=== PATIENT | male | born 1990 | race Caucasian/White ===

== ENCOUNTER → 2018-12-31 | Outpatient (CLI) | payer BC ==
--- NOTE | 2018-12-31 20:37 | CONS ---
CONSULTATION REASON FOR CONSULTATION: Sleep apnea. 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 Never had to fall asleep behind the wheel. Never had been involved in a motor vehicle accident because of feeling drowsy or sleepy. Based on a recent evaluation that was done at [facility], the patient was screened positive for sleep apnea. He was referred to me. Never the less, the patient does not have any snoring. No witnessed apneas. No hypersomnia or sleepiness during the day. He goes to bed around 10 p.m., wakes up at 4:30 a.m. in the morning. Denies waking up for nocturia. Denies waking up for gasping for air or grinding of the teeth or any restlessness in the lower extremities. No substance abuse. No tiredness or sleepiness during the day. Renton score is 0. PAST MEDICAL HISTORY: Negative. SURGICAL HISTORY: Negative. DRUG ALLERGIES: Not known. HOME MEDICATIONS: None. SOCIAL HISTORY: Nonsmoker. No history of alcohol. No history of IV drugs. FAMILY HISTORY: Negative for sleep apnea. REVIEW OF SYSTEMS: Fourteen-point review of system was done. Essentially negative other than the things mentioned above in the history of present illness. He has gained weight. He used to weigh around 220 pounds approximately a year ago and currently is up to 256. Never the less, no snoring. No disrupted sleep. No anxiety. No panic attacks. No heartburn. No claustrophobia. No anxiety. No depression. No difficulty with concentration and memory. No falling asleep during the day and he is not worried about his sleep quality at all. PHYSICAL EXAMINATION: BP is 138/87, pulse 86, respirations 16, temperature 98.0, Saturation 96% on room air. Height is 5 feet 5 inches, weight 256, and neck size 17 inches. General appearance is calm and comfortable. His head is atraumatic, normocephalic. NECK: Supple. No JVD. No goiter or neck masses. Mallampati Class 1. LUNGS: Clear to auscultation. HEART: Heart sounds are regular rate and rhythm. Normal S1/S2. No murmurs. ABDOMEN: Soft, nontender. No organomegaly. EXTREMITIES: No edema. No cyanosis or clubbing. NEUROLOGIC: He is awake, alert. There are no focal neurological deficits. PSYCHIATRIC: Negative for anxiety or depression. IMPRESSION: 1. Obesity, BMI of 41.9. 2. helper/driver. 3. Low suspicion for obstructive sleep apnea. Renton score is a 0. PLAN: Proceed with a home sleep study and document the presence or absence of sleep breathing disorder and clear the patient for DOC certification accordingly. Encourage weight loss. Implement good sleep hygiene measures. We will continue to follow. LYNETTEL / VANIN: [id number] /
== END ==
LOC: SLEEP 14:45
PROVIDERS: ATTEND Internal Medicine Critical Care Medicine
DX: E66.9 Obesity, unspecified (principal); Z68.41 Body mass index [BMI] 40.0-44.9, adult
CPT/HCPCS: 99201